=== PATIENT | female | born 2000 | race Caucasian/White ===

== ENCOUNTER 2021-02-16 08:01 | Day surgery (SDC) | payer OTHER ==
[~2021-02-16] VITALS: Ht 157.5 cm; Wt 69.8 kg
[~2021-02-16 08:01] MED LIST: Atarax10 MG PO; BUSP5 PO; OMEP20ER PO; PARO10 PO; TRITOCIN430 GM; Tri-Sprintec1 EACH
--- NOTE | 2021-02-16 08:37 | NUR ---
02/16/21 0837 Jailyn Sutton SERUM TEST SENT TO LAB SINCE SPECIFIC GRAVITY ON URINE TEST WAS TOO LOW.
== END 2021-02-16 09:40 | disposition home or self-care (01) ==
LOC: ORSCSDS 08:01
PROVIDERS: Internal Medicine Gastroenterology
PROC: 0DB98ZX Excision of Duodenum, Via Natural or Artificial Opening Endoscopic, Diagnostic (ICD-10-PCS; principal; 2021-02-16 09:15)
PROC: 0DB68ZX Excision of Stomach, Via Natural or Artificial Opening Endoscopic, Diagnostic (ICD-10-PCS; principal; 2021-02-16 09:15)
PROC: 0DB58ZX Excision of Esophagus, Via Natural or Artificial Opening Endoscopic, Diagnostic (ICD-10-PCS; principal; 2021-02-16 09:15)
DX: K20.0 Eosinophilic esophagitis (principal); F41.8 Other specified anxiety disorders; Z79.899 Other long term (current) drug therapy
CPT/HCPCS: 84703; 88305; 88342; J2250; J2704; J7120